=== PATIENT | female | born 1965 | race African-American/Black ===

== ENCOUNTER 2019-09-28 08:59 | Emergency (ER) | payer MEDICAID ==
[~2019-09-28] VITALS: Ht 167.6 cm; Wt 68.0 kg
[2019-09-28 09:10] VITALS: BP 154/90
== END 2019-09-28 10:05 | disposition home or self-care (01) ==
LOC: ER 09:20
DX: K12.0 Recurrent oral aphthae (principal); Z98.890 Other specified postprocedural states
CPT/HCPCS: 99282

== ENCOUNTER 2019-10-01 21:58 | Emergency (ER) | payer MEDICAID ==
[~2019-10-01] VITALS: Ht 167.6 cm; Wt 74.0 kg
[2019-10-01] MEDS ORDERED: OLANZAPINE 10 MG/VIAL IM STA (22:28)
[2019-10-01] MEDS ORDERED: SODIUM CHLORIDE 0.9% 1,000 ML IV ONE (22:28)
[2019-10-01] MEDS ORDERED: ONDANSETRON HCL 4MG/2ML INJ IV STA (22:28)
[2019-10-01] MEDS ORDERED: LORAZEPAM 2MG/ML CPJ IV STA (22:28)
[2019-10-01 23:02] LABS: BASOPHILS % 0.7 % (0.0-2.0); EOSINOPHILS % 2.4 % (0.0-5.0); HEMATOCRIT. 46.7 % (36.0-48.0); HEMOGLOBIN. 15.7 g/dL (12.0-16.0); LYMPHOCYTES % 40.2 % (20.0-50.0); MEAN CORPUSCULAR HEMOGLOBIN 30.4 pg (28.0-32.0); MEAN CORPUSCULAR VOLUME 90.2 fL (81.0-99.0); MEAN PLATELET VOLUME 8.2 fl (7.4-10.4); MONOCYTES % 9.7 % (2.0-8.0); PLATELET 293 x1000/uL (130-400); RED BLOOD CELL COUNT 5.17 mill/uL (4.2-5.4); RED CELL DISTRIBUTION WIDTH 14.8 % (11.6-14.6)
[2019-10-01 23:08] LABS: CHLORIDE 105 mEq/L (98-107)
[2019-10-01 23:12] LABS: ETHANOL BLOOD < 10 mg/dL
[2019-10-02 00:27] LABS: CLARITY URINE CLEAR (CLEAR); COLOR URINE YELLOW (YELLOW); KETONES URINE NEGATIVE (NEGATIVE); LEUKOCYTE ESTERASE URINE NEGATIVE (NEGATIVE); NITRITE URINE NEGATIVE (NEGATIVE); OCCULT BLOOD URINE NEGATIVE (NEGATIVE); PH URINE 5.5 (4.5-8.0); PROTEIN URINE NEGATIVE (NEGATIVE); SPECIFIC GRAVITY URINE 1.019 (1.005-1.030); UROBILINOGEN URINE 0.2 E.U./dL (0.2-1.0)
[2019-10-02 00:31] LABS: *AMPHETAMINES SCREEN URINE NEGATIVE (NEGATIVE)
[2019-10-02 00:32] LABS: *BARBITURATES SCREEN URINE NEGATIVE (NEGATIVE); *BENZODIAZEPINES SCREEN URINE PRESUMTIVE POSITIVE (NEGATIVE); *COCAINE SCREEN URINE PRESUMTIVE POSITIVE (NEGATIVE); METHADONE URINE SCREEN NEGATIVE (NEGATIVE); OPIATES URINE SCREEN NEGATIVE (NEGATIVE)
[2019-10-02 00:33] LABS: CANNABINOID URINE SCREEN NEGATIVE (NEGATIVE); PHENCYCLIDINE URINE SCREEN PRESUMTIVE POSITIVE (NEGATIVE)
[2019-10-02] MEDS ORDERED: MIDAZOLAM HCL 2 MG/2 ML VIAL IV ONE (02:45)
[2019-10-02 16:01] VITALS: BP 134/75
== END 2019-10-02 16:05 | disposition home or self-care (01) ==
LOC: ER 21:58
DX: T40.5X1A Poisoning by cocaine, accidental (unintentional), initial encounter (principal); T40.991A Poisoning by other psychodysleptics [hallucinogens], accidental (unintentional), initial encounter; T42.4X1A Poisoning by benzodiazepines, accidental (unintentional), initial encounter; G92 Toxic encephalopathy; F91.8 Other conduct disorders; F14.129 Cocaine abuse with intoxication, unspecified; F16.129 Hallucinogen abuse with intoxication, unspecified; F19.129 Other psychoactive substance abuse with intoxication, unspecified; Y92.832 Beach as the place of occurrence of the external cause; Z78.1 Physical restraint status
CPT/HCPCS: 36415; 70450; 71045; 80053; 80305; 80307; 80320; 80329; 81003; 82962; 85025; 93005; 96361; 96372; 96374; 96375; 99285; J2060; J2250; J2405; J3490; J7030; Z7610; G0480

== ENCOUNTER 2019-11-19 15:59 | Emergency (ER) | payer MEDICAID ==
[~2019-11-19] VITALS: Ht 167.6 cm; Wt 68.0 kg
[2019-11-19] MEDS ORDERED: BACITRACIN ZINC OINT UDPKT TOP ONE (18:30)
[2019-11-19] MEDS ORDERED: KETOROLAC 60MG/2ML VIAL IM ONE (18:30)
[2019-11-19] MEDS ORDERED: LIDOCAINE HCL/PF 1% 10 MG/ML 5ML VIAL IJ ONE (18:30)
[2019-11-19 19:03] LABS: CLARITY URINE CLOUDY (CLEAR); COLOR URINE YELLOW (YELLOW); KETONES URINE NEGATIVE (NEGATIVE); LEUKOCYTE ESTERASE URINE 3+ (NEGATIVE); NITRITE URINE NEGATIVE (NEGATIVE); OCCULT BLOOD URINE NEGATIVE (NEGATIVE); PH URINE 5.5 (4.5-8.0); PROTEIN URINE TRACE (NEGATIVE); SPECIFIC GRAVITY URINE 1.015 (1.005-1.030)
[2019-11-19 20:12] VITALS: BP 154/98
== END 2019-11-19 20:13 | disposition home or self-care (01) ==
LOC: ER 15:59
DX: N75.1 Abscess of Bartholin's gland (principal)
CPT/HCPCS: 81003; 87077; 87086; 87186; 96372; 99283; J1885; J3490

== ENCOUNTER 2019-11-22 10:41 | Emergency (ER) | payer MEDICAID ==
[~2019-11-22] VITALS: Ht 167.6 cm; Wt 68.0 kg
[2019-11-22 12:16] VITALS: BP 122/78
== END 2019-11-22 12:16 | disposition home or self-care (01) ==
LOC: ER 10:55
DX: N75.0 Cyst of Bartholin's gland (principal)
CPT/HCPCS: 99281; 99283

== ENCOUNTER 2019-11-25 14:10 | Emergency (ER) | payer MEDICAID ==
[~2019-11-25] VITALS: Ht 167.6 cm; Wt 68.0 kg
[2019-11-25] MEDS ORDERED: ACETAMINOPHEN 325MG TABLET PO ONE (16:15)
[2019-11-25] MEDS ORDERED: CEFTRIAXONE SODIUM 1 G/VIAL IM ONE (16:15)
[2019-11-25] MEDS ORDERED: LIDOCAINE HCL 1% 20ML VIAL (Pyxis) INJ INFIL ONE (16:15)
[2019-11-25 17:58] VITALS: BP 124/79
== END 2019-11-25 18:01 | disposition home or self-care (01) ==
LOC: ER 14:10
DX: N75.0 Cyst of Bartholin's gland (principal); Z98.890 Other specified postprocedural states
CPT/HCPCS: 96372; 99283; J0696; J3490

== ENCOUNTER 2019-11-27 10:46 | Emergency (ER) | payer MEDICAID ==
[~2019-11-27] VITALS: Ht 167.6 cm; Wt 75.0 kg
[2019-11-27] MEDS ORDERED: LIDOCAINE HCL/EPINEPHRINE 1%-EPI 1:100,000 20 ML VIAL INFIL ONE (12:15)
== END 2019-11-27 12:49 | disposition home or self-care (01) ==
LOC: ER 10:46
DX: N75.0 Cyst of Bartholin's gland (principal); Z98.890 Other specified postprocedural states
CPT/HCPCS: 56420; 99284

== ENCOUNTER 2019-11-30 12:39 | Emergency (ER) | payer MEDICAID ==
[~2019-11-30] VITALS: Ht 167.6 cm; Wt 68.0 kg
[2019-11-30 13:18] VITALS: BP 124/66
== END 2019-11-30 13:20 | disposition home or self-care (01) ==
LOC: ER 12:56
DX: N75.0 Cyst of Bartholin's gland (principal); Z98.890 Other specified postprocedural states
CPT/HCPCS: 99281

== ENCOUNTER 2021-03-10 06:24 | Emergency (ER) | payer MEDICAID ==
[~2021-03-10] VITALS: Ht 167.6 cm; Wt 69.0 kg
[2021-03-10] MEDS ORDERED: ACETAMINOPHEN 325MG TABLET PO ONE (07:00)
[2021-03-10] MEDS ORDERED: TOPUD PO (08:44)
[2021-03-10 08:52] VITALS: BP 128/76
== END 2021-03-10 08:54 | disposition home or self-care (01) ==
LOC: ER 06:31
DX: M25.552 Pain in left hip (principal); M25.512 Pain in left shoulder; V03.00XA Pedestrian on foot injured in collision with car, pick-up truck or van in nontraffic accident, initial encounter; Y93.89 Activity, other specified; Y92.488 Other paved roadways as the place of occurrence of the external cause
CPT/HCPCS: 72100; 73030; 73502; 99284

== ENCOUNTER 2022-03-12 08:30 | Emergency (ER) | payer MEDICAID ==
[~2022-03-12] VITALS: Ht 167.6 cm; Wt 82.4 kg
[~2022-03-12 08:30] MED LIST: TOPUD PO
[2022-03-12 08:32] VITALS: BP 169/90
== END 2022-03-12 17:58 | disposition left against medical advice (07) ==
LOC: ER 08:44
DX: Z53.21 Procedure and treatment not carried out due to patient leaving prior to being seen by health care provider (principal)
CPT/HCPCS: 93005

== ENCOUNTER 2023-11-14 19:49 | Emergency (ER) | payer MEDICARE, MEDICAID ==
[~2023-11-14] VITALS: Ht 167.6 cm; Wt 68.0 kg
[~2023-11-14 19:49] MED LIST changes: +FOLI-43 MT; +LEVO25TA7 PO; +MULT-1146 MT; +THIA100T72 PO; -TOPUD PO
[2023-11-14 19:57] VITALS: TEMP 98.7
[2023-11-14 20:52] LABS: BASOPHILS % 0.5 % (0.0-2.0); EOSINOPHILS % 0.8 % (0.0-5.0); HEMATOCRIT. 45.3 % (36.0-48.0); LYMPHOCYTES % 25.7 % (20.0-50.0); MEAN CORPUSCULAR HEMOGLOBIN 30.5 pg (28.0-32.0); MEAN CORPUSCULAR HGB CONC 33.1 g/dL (31.0-37.0); MEAN CORPUSCULAR VOLUME 92.1 fL (81.0-99.0); MEAN PLATELET VOLUME 8.2 fl (7.4-10.4); MONOCYTES % 11.9 % (2.0-8.0); NEUTROPHILS % 61.1 % (40.0-76.0); PLATELET 268 x1000/uL (130-400); RED BLOOD CELL COUNT 4.92 mill/uL (4.2-5.4); RED CELL DISTRIBUTION WIDTH 13.6 % (11.6-14.6); WHITE BLOOD COUNT 5.3 x1000/uL (4.5-11.0)
[2023-11-14 20:56] LABS: CHLORIDE 105 mEq/L (98-107); POTASSIUM 3.6 mEq/L (3.5-5.1); SODIUM 139 mEq/L (136-145)
[2023-11-14 20:57] LABS: CALCIUM 9.3 mg/dL (8.7-10.4); CARBON DIOXIDE 28 mEq/L (21-32)
[2023-11-14 21:02] LABS: CREATININE 0.8 mg/dL (0.6-1.0); GLUCOSE 126 mg/dL (70-105); UREA NITROGEN BLOOD 10 mg/dL (9-23)
[2023-11-14 21:04] LABS: TROPONIN I HIGH SENSITIVITY 24 ng/L (3.0-34)
[2023-11-14] MEDS: PREDNISONE 20MG TABLET PO STA (21:24)
[2023-11-14] MEDS: ALBUTEROL (0.083%) 2.5MG/3ML NEB HHN SCH (21:38)
[2023-11-14 22:08] VITALS: PULSE 79; RESP 18; O2SAT 96
[2023-11-14 22:38] VITALS: PULSE 81; PULSE 83; RESP 18; O2SAT 99
[2023-11-14] MEDS ORDERED: ALBU6.7H15 INH (23:20)
[2023-11-14] MEDS ORDERED: P50 MT (23:20)
[2023-11-15 00:05] VITALS: BP 145/82; PULSE 71; RESP 21
== END 2023-11-15 00:35 | disposition home or self-care (01) ==
LOC: ER 20:00
DX: J44.9 Chronic obstructive pulmonary disease, unspecified (principal)
CPT/HCPCS: 99285; 71045; 80048; 83880; 85025; 84484; 36415; 93005; 94640; J7512

== ENCOUNTER 2024-12-15 11:57 | Emergency (ER) | payer MEDICARE, MEDICAID ==
[~2024-12-15] VITALS: Ht 167.6 cm; Wt 68.0 kg
[~2024-12-15 11:57] MED LIST changes: +ALBU6.7H15 INH; +P50 MT
[2024-12-15 12:10] VITALS: O2SAT 95
[2024-12-15] MEDS: ACETAMINOPHEN 500MG TABLET PO ONE (14:15)
[2024-12-15 16:45] VITALS: BP 175/81; PULSE 65; RESP 16; TEMP 36.7; O2SAT 96
== END 2024-12-15 16:45 | disposition home or self-care (01) ==
LOC: ER 11:57
DX: G89.29 Other chronic pain (principal); M25.561 Pain in right knee; Z96.659 Presence of unspecified artificial knee joint; Z98.890 Other specified postprocedural states
CPT/HCPCS: 73560; 99283